=== PATIENT | female | born 1950 | race Caucasian/White ===

== ENCOUNTER 2018-02-19 05:58 | Day surgery (SDC) | payer MEDICARE ==
--- NOTE | 2018-02-12 15:20 | RAD REPORT ---
EXAM DESCRIPTION: RAD - Chest Single View - 02/12/2018 3:09 pm CLINICAL HISTORY: preop Chest pain. COMPARISON: Chest Single View dated 04/19/2017 FINDINGS: Portable technique limits examination quality. The lungs are grossly clear. The heart is normal in size. No displaced fractures. IMPRESSION: No acute intrathoracic process suspected.
--- NOTE | 2018-02-12 15:37 | EKG ---
Test Date: 2018-02-12 Test Time: 14:59:57 Cupola Tender: RICH MEASUREMENT RESULTS: Intervals: Rate: 62 IN: 126 QRSD: 76 QT: 400 QTc: 406 Hooper: P: 74 IN: 126 QRS: 54 T: 58 INTERPRETIVE STATEMENTS: Normal sinus rhythm Normal ECG Compared to ECG 04/19/2017 16:53:22 Sinus bradycardia no longer present Electronically Signed On 02-12-18 15:36:44 CDT by Guanako Mitchell
[2018-02-12 16:32] LABS: Absolute Lymphocytes (CBC) 2.5 K/uL (0.7-4.9); Absolute Monocytes 0.6 K/uL (0.1-1.3); Absolute Neutrophil 5.8 K/uL (1.8-8.0); Basophils % 0.7 % (0-1.3); Eosinophils % 2.5 % (0-4.4); Hematocrit 38.9 % (36.0-45.0); Lymphocytes % 27.3 % (15.3-44.8); MCH 30.9 pg (27.0-35.0); MCV 94.5 fL (80-100); MPV 10.8 fL (7.6-11.3); Monocytes % 6.9 % (3.3-12.3); RBC Red Blood Cell Count 4.12 M/uL (3.86-4.86)
[2018-02-12 16:36] LABS: Protime INR 0.94
[2018-02-19] MEDS ORDERED: CEFAZOLIN/SWI 2gm 2 GM/20 ML SYR IV SCH (06:00)
[2018-02-19] MEDS ORDERED: Ringers Lactate 1,000 ML IV ONE ×2 (06:27→08:35)
[2018-02-19] MEDS ORDERED: ROPLVACAINE HCL 40 ML ONE (06:49)
[2018-02-19] MEDS ORDERED: FENTANYL CITR 250 MCG/5 ML ONE (06:50)
[2018-02-19] MEDS ORDERED: MIDAZOLAM HCL 2 MG/2 ML INJ ONE (06:50)
[2018-02-19] MEDS ORDERED: DEXAMETHASONE 4 MG/ML VIAL ONE (06:50)
[2018-02-19] MEDS ORDERED: EPINEPHRINE/PF 1 MG/ML AMP ONE (06:51)
[2018-02-19] MEDS ORDERED: ROCURONIUM 50 MG/5 ML VIAL IV ONE (07:18)
[2018-02-19] MEDS ORDERED: PROPOFOL 200 MG/20 ML VIAL IV ONE (07:18)
[2018-02-19] MEDS ORDERED: LIDOCAINE 1% MPF 5 ML VIAL ONE (07:18)
[2018-02-19] MEDS ORDERED: EPHEDRINE SULF 50 MG/10 ML SYR ONE ×2 (08:09→08:35)
[2018-02-19] MEDS ORDERED: Phenylephrine HCl 10 MG/ML 1 ML VIAL ONE (08:43)
[2018-02-19] MEDS ORDERED: NS 0.9% VIAL 20 ML ONE (08:44)
[2018-02-19] MEDS ORDERED: ONDANSETRON HCL 40 MG/20 ML VIAL ONE (09:23)
[2018-02-19] MEDS ORDERED: GLYCOPYRROLATE 0.2 MG/ML SYR ONE (09:23)
--- NOTE | 2018-02-19 09:33 | P.BOP ---
Preoperative diagnosis: left rotator cuff tear, biceps tendinitis, impingement syndrome Postoperative diagnosis: left rotator cuff tear, impingement syndrome, SLAP tear Primary procedure: left shoulder arthroscopic rotator cuff repair Secondary procedure: left shoulder arthroscopic biceps tenotomy w/ SLAP debridement Other procedure(s): left shoulder arthroscopic subacromial decompression Estimated blood loss: <10 cc Specimen: none Findings: see dictation Anesthesia: General Complications: None Implants: 1- 5.5 mm Arthrex corkscrew, 1- 4.75 mm Swivelock Fluids & blood products: per anesthesia Transferred to: Recovery Room Condition: Good
[2018-02-19] MEDS ORDERED: NEOSTIGMINE 1 MG/ML -5 ML SYRINGE ONE (09:48)
--- NOTE | 2018-02-19 10:49 | RAD REPORT ---
EXAM DESCRIPTION: RAD - Shoulder 1 View - 02/19/2018 10:21 am FINDINGS: Single portable left shoulder film obtained following rotator cuff repair surgery. No foreign body. No fracture or acute bone finding. Air in the lateral soft tissues is normal for rec ent surgery. No suspicious or unexpected finding.
[2018-02-19] MEDS ORDERED: HYDROCODONE/APAP 7.5/325 MG TAB ONE (10:57)
--- NOTE | 2018-02-19 20:58 | OP ---
Date of Procedure: 02/19/2018 Surgeon: Enzo Kelley MD Preoperative Diagnoses: 1.Left shoulder rotator cuff tear. 2.Left shoulder bicipital tenosynovitis. 3.Left shoulder impingement syndrome. Postoperative Diagnoses: 1.Left shoulder rotator cuff tear. 2.Left shoulder superior labrum anterior and posterior tear. 3.Left shoulder impingement syndrome. Procedures Performed: 1.Left shoulder arthroscopic rotator cuff repair. 2.Left shoulder arthroscopic biceps tenotomy with superior labrum anterior and posterior tear debrid ement. 3.Left shoulder subacromial decompression. Anesthesia: General endotracheal. Fluids: Per Anesthesia record. Ebl: Less than 10 cc. Implants: 1.One 5.5 mm Arthrex corkscrew. 2.One 4.75 mm Arthrex SwiveLock. Indication For Procedure: Emilia is a 67-year-old female who presented to my clinic with signs and s ymptoms and MRI findings consistent with a left shoulder rotator cuff tear. I discussed with the pat ient at length risks and benefits associated with operative and nonoperative treatments. She express ed understanding and elected to proceed with operative treatment. Procedure In Detail: After informed consent was obtained, the patient was identified in the preopera tive holding area. Left upper extremity was marked. The patient then underwent a left interscalene block performed by Anesthesia for postoperative pain control. She was then taken back to the operati ng room, transferred to the operative table in supine fashion, placed under general endotracheal anes thesia. She was then placed in the beach chair position with her extremities well-padded. The left upper extremity was then examined. The patient had full range of motion of her left shoulder with no instability noted. The left upper extremity was then prepped and draped in usual sterile fashion. A time-out was initiated and the correct patient and procedure were confirmed and identified. The pa connor did receive her preoperative prophylactic antibiotics. Beneath the posterior portal position a spinal needle was introduced into the left glenohumeral joint and shoulder was injected with 30 cc o f normal saline to the tendon and capsule. A posterior portal was created and the arthroscope was br ought to the posterior portal position. Diagnostic arthroscopy was performed. The patient was noted to have an intact subscapularis, and stable to probe. An anterior portal was created and cannula wa s placed. There was noted to be a type 2 SLAP tear and biceps tenotomy was performed with meniscal b iters. The frayed superior labrum was then debrided using an arthroscopic shaver. The anterior and posterior labrum were found to be stable to probe. There was some mild chondromalacia noted on the g lenoid surface. No significant chondromalacia in the humeral head. No loose bodies were noted in th e axillary pouch. The arthroscope was brought into the supraspinatus footprint near the tubular surf aubree and there was noted to be a full-thickness tear in the anterior aspect of the supraspinatus just posterior to the biceps. An arthroscopic shaver was then used to be to debride the undersurface of t he rotator cuff tear as well as footprint on the greater tuberosity. A lateral portal was then creat ed of an outside-in position. An arthroscopic shaver was then used to debride the footprint of supra spinatus and the side of the tear, debrided to bleeding bony bed. The arthroscope was then brought i nto the subacromial space and a subacromial bursectomy was performed. The patient was noted to have fraying of the coracoacromial ligament. Undersurface of the acromion was then debrided of soft tissu e using a radiofrequency ablator. A small stab incision was made just lateral to the acromion and wi th placement of the anchor. A punch was then placed just lateral to the articular surface and a 5.5 mm corkscrew was placed through, which was double loaded. Four cinch sutures were then passed throug h the supraspinatus tear using a FastPass scorpion suture passer in a horizontal mattress fashion for medial row fixation. They were then tied and then brought laterally to a single SwiveLock, was plac ed in the lateral aspect of the greater tuberosity, overall good reduction of the supraspinatus tear onto its footprint on the greater tuberosity. The remaining sutures were then cut at the level later al row anchor. Next, using an arthroscopic arnulfo, a subacromial decompression was performed by perfor kwame an acromioplasty using the arthroscopic arnulfo and inferior protruding osteophytes were debrided u sing the arnulfo. Instruments were then removed. The portals were then irrigated with normal saline an d the subcutaneous tissues were approximated using a 2-0 Vicryl and portals were approximated using a 3-0 Monocryl. Sterile dressings were applied. The patient was placed in a postoperative shoulder i mmobilizer, awakened, and transferred to PACU in stable condition. Postoperative Plan: She will be nonweightbearing, and she will remain in her shoulder immobilizer fo r 6 weeks. She will begin physical therapy for medium rotator cuff repair protocol at 4 weeks postop erative. She will follow up in clinic next week for wound check. LESTER/VINI Voice ID: [id number] Report ID: [id number]
== END 2018-02-19 11:50 | disposition home or self-care (01) ==
LOC: OR 05:58
PROVIDERS: ATTEND Orthopaedic Surgery Sports Medicine
PROC: 0LS24ZZ Reposition Left Shoulder Tendon, Percutaneous Endoscopic Approach (ICD-10-PCS; 2018-02-19)
PROC: 0RNK4ZZ Release Left Shoulder Joint, Percutaneous Endoscopic Approach (ICD-10-PCS; 2018-02-19)
PROC: 0RBK4ZZ Excision of Left Shoulder Joint, Percutaneous Endoscopic Approach (ICD-10-PCS; 2018-02-19)
PROC: 0LQ24ZZ Repair Left Shoulder Tendon, Percutaneous Endoscopic Approach (ICD-10-PCS; principal; 2018-02-19 07:30)
DX: M75.122 Complete rotator cuff tear or rupture of left shoulder, not specified as traumatic (principal); M75.22 Bicipital tendinitis, left shoulder; M75.42 Impingement syndrome of left shoulder; M25.512 Pain in left shoulder
CPT/HCPCS: 29823; 29826; 29827; 29828; 36415; 71046; 73020; 85025; 85610; 85730; 93005; J0171; J0690; J2250; J2370; J2405; J2710; J2795; 71045

== ENCOUNTER 2018-05-15 19:36 | Emergency (ER) | payer MEDICARE ==
--- NOTE | 2018-05-15 20:42 | RAD REPORT ---
EXAM DESCRIPTION: RAD - Chest Pa And Lat (2 Views) - 05/15/2018 8:33 pm CLINICAL HISTORY: COUGH Chest pain. COMPARISON: Chest Pa And Lat (2 Views) dated 02/12/2018; Chest Single View dated 04/19/2017 FINDINGS: The lungs are clear. The heart is normal in size. No displaced fractures. IMPRESSION: No acute or concerning finding suspected.
[2018-05-15] MEDS ORDERED: IPRATROPIUM BROM 0.5MG/2.5ML ONE (22:01)
[2018-05-15] MEDS ORDERED: predniSONE 20 MG TAB ONE (22:02)
[2018-05-15] MEDS ORDERED: LEVALBUTEROL 1.25 MG/3 ML NEB ONE (22:02)
--- NOTE | 2018-05-15 22:37 | EDPHYS ---
Physician Documentation [facility] Name: Emilia Pinzon Age: 68 yrs Sex: Female : 1950 Arrival Date: 05/15/2018 Time: 19:46 Bed 28 Private MD: ED Physician Yakov Luis HPI: 05/15 22:34 This 68 yrs old Female presents to ER via Ambulatory with complaints of kb Shortness Of Breath, Chest Wall Pain. 22:34 The patient or guardian reports cough, that is intermittent, described as moderate, kb with no sputum, difficulty breathing. Onset: The symptoms/episode began/occurred 1 week(s) ago. Severity of symptoms: At their worst the symptoms were mild, moderate, in the emergency department the symptoms are unchanged. Modifying factors: The symptoms are alleviated by nothing, the symptoms are aggravated by nothing. Associated signs and symptoms: The patient has no apparent associated signs or symptoms. The patient has not experienced similar symptoms in the past. The patient has not recently seen a physician. Historical: - Allergies: 19:50 Sulfa (Sulfonamide Antibiotics); aj - Home Meds: 19:50 Celexa 40 mg Oral tab 1 tab once daily [Active]; amlodipine oral once daily [Active]; aj atenolol 100 mg Oral tab 1 tab once daily [Active]; - PMHx: 19:50 Anxiety; Hypertension; aj - PSHx: 19:50 Hysterectomy; Cholecystectomy; shoulder SX; aj - Immunization history:: Adult Immunizations up to date. - Social history:: Smoking status: Patient/guardian denies using tobacco, the patient reports quitting approximately 8 years ago. - Ebola Screening: : Patient negative for fever greater than or equal to 101.5 degrees Fahrenheit, and additional compatible Ebola Virus Disease symptoms Patient denies exposure to infectious person Patient denies travel to an Ebola-affected area in the 21 days before illness onset No symptoms or risks identified at this time. ROS: 22:33 Constitutional: Negative for fever, chills, and weight loss, Cardiovascular: Negative kb for chest pain, palpitations, and edema, Abdomen/GI: Negative for abdominal pain, nausea, vomiting, diarrhea, and constipation, Back: Negative for injury and pain, : Negative for injury, bleeding, discharge, and swelling, MS/Extremity: Negative for injury and deformity, Skin: Negative for injury, rash, and discoloration, Neuro: Negative for headache, weakness, numbness, tingling, and seizure. 22:33 Respiratory: Positive for cough, with no reported sputum, shortness of breath, wheezing, Negative for dyspnea on exertion, hemoptysis, orthopnea, pleurisy. Exam: 22:33 Constitutional: This is a well developed, well nourished patient who is awake, alert, kb and in no acute distress. Head/Face: Normocephalic, atraumatic. Neck: Trachea midline, no thyromegaly or masses palpated, and no cervical lymphadenopathy. Supple, full range of motion without nuchal rigidity, or vertebral point tenderness. No Meningismus. Chest/axilla: Normal chest wall appearance and motion. Nontender with no deformity. No lesions are appreciated. Cardiovascular: Regular rate and rhythm with a normal S1 and S2. No gallops, murmurs, or rubs. Normal PMI, no JVD. No pulse deficits. Abdomen/GI: Soft, non-tender, with normal bowel sounds. No distension or tympany. No guarding or rebound. No evidence of tenderness throughout. Skin: Warm, dry with normal turgor. Normal color with no rashes, no lesions, and no evidence of cellulitis. MS/ Extremity: Pulses equal, no cyanosis. Neurovascular intact. Full, normal range of motion. Neuro: Awake and alert, GCS 15, oriented to person, place, time, and situation. Cranial nerves II-XII grossly intact. Motor strength 5/5 in all extremities. Sensory grossly intact. Cerebellar exam normal. Normal gait. 22:33 Respiratory: the patient does not display signs of respiratory distress, Respirations: normal, Breath sounds: wheezing: expiratory that is moderate, is heard diffusely. Vital Signs: 19:50 BP 138 / 78; Pulse 90; Resp 20; Temp 97.9; Pulse Ox 94% on R/A; Weight 79.38 kg; Height aj 5 ft. 7 in. (170.18 cm); 22:39 BP 137 / 67; Pulse 73; Resp 17; Pulse Ox 100% on R/A; rv 19:50 Body Mass Index 27.41 (79.38 kg, 170.18 cm) aj MDM: 21:41 Patient medically screened. kb 22:33 Data reviewed: vital signs, nurses notes. Data interpreted: Pulse oximetry: on room air kb is 94 %. Interpretation: acceptable. 22:34 Counseling: I had a detailed discussion with the patient and/or guardian regarding: the kb historical points, exam findings, and any diagnostic results supporting the discharge/admit diagnosis, lab results, the need for outpatient follow up, a family practitioner, to return to the emergency department if symptoms worsen or persist or if there are any questions or concerns that arise at home. 05/15 21:47 Order name: Flu; Complete Time: 22:24 kb 05/15 19:52 Order name: Chest Pa And Lat (2 Views) XRAY; Complete Time: 21:41 aj Administered Medications: 22:05 Drug: Xopenex (3) 1.25 mg Route: Inhalation; rv 22:47 Follow up: Response: Wheezing diminished rv 22:05 Drug: AtroVENT Aerosol 0.5 mg Route: Inhalation; rv 22:47 Follow up: Response: No adverse reaction rv 22:05 Drug: predniSONE 40 mg Route: PO; rv 22:47 Follow up: Response: No adverse reaction rv Disposition: 05/15/18 22:36 Discharged to Home. Impression: Bronchitis, not specified as acute or chronic. - Condition is Stable. - Discharge Instructions: Acute Bronchitis, [id number]. - Prescriptions for Prednisone 20 mg Oral Tablet - take 1 tablet by ORAL route once daily for 5 days; 5 tablet. Albuterol Sulfate 90 mcg/actuation - inhale 1-2 puff by INHALATION route every 4-6 hours; 1 Inhaler. - Medication Reconciliation Form, Thank You Letter, Antibiotic Education, Prescription Opioid Use form. - Follow up: Emergency Department; When: As needed; Reason: Worsening of condition. Follow up: Private Physician; When: 2 - 3 days; Reason: Recheck today's complaints, Continuance of care, Re-evaluation by your physician. Addendum: 05/19/2018 06:50 Co-signature as Attending Physician, Yakov Luis MD I agree with the assessment and c saavedra plan of care. Signatures: Dispatcher [employer] Maria Elena Santiago, ARETHA ZAMARRIPA-Lani Pereira RN Yakov Jones MD MD cha Vicente, Ronaldo RN RN rv Corrections: (The following items were deleted from the chart) 05/15 22:48 22:36 05/15/2018 22:36 Discharged to Home. Impression: Bronchitis, not specified as rv acute or chronic. Condition is Stable. Forms are Medication Reconciliation Form, Thank You Letter, Antibiotic Education, Prescription Opioid Use. Follow up: Emergency Department; When: As needed; Reason: Worsening of condition. Follow up: Private Physician; When: 2 - 3 days; Reason: Recheck today's complaints, Continuance of care, Re-evaluation by your physician. kb
--- NOTE | 2018-05-15 22:37 | ER ---
Nurse's Notes [facility] Name: Emilia Pinzon Age: 68 yrs Sex: Female : 1950 Arrival Date: 05/15/2018 Time: 19:46 Bed 28 Private MD: Diagnosis: Bronchitis, not specified as acute or chronic Presentation: 05/15 19:49 Presenting complaint: Patient states: SOB and productive cough for 1 week. Transition aj of care: patient was not received from another setting of care. Onset of symptoms was May 08, 2018. Risk Assessment: Do you want to hurt yourself or someone else? Patient reports no desire to harm self or others. Initial Sepsis Screen: Does the patient meet any 2 criteria? No. Patient's initial sepsis screen is negative. Does the patient have a suspected source of infection? No. Patient's initial sepsis screen is negative. Care prior to arrival: None. 19:49 Method Of Arrival: Ambulatory aj 19:49 Acuity: LAUREN 3 aj Triage Assessment: 19:50 General: Appears in no apparent distress. comfortable, Behavior is calm, cooperative, aj appropriate for age. Pain: Denies pain. Neuro: Level of Consciousness is awake, alert, obeys commands, Oriented to person, place, time, situation, Appropriate for age. Respiratory: Reports shortness of breath at rest Airway is patent Respiratory effort is even, unlabored, Respiratory pattern is regular, symmetrical, Onset: The symptoms/episode began/occurred gradually, the patient has mild shortness of breath. Respiratory: Reports cough that is productive. Derm: Skin is intact, is healthy with good turgor, Skin is pink, warm \T\ dry. normal. Historical: - Allergies: 19:50 Sulfa (Sulfonamide Antibiotics); aj - Home Meds: 19:50 Celexa 40 mg Oral tab 1 tab once daily [Active]; amlodipine oral once daily [Active]; aj atenolol 100 mg Oral tab 1 tab once daily [Active]; - PMHx: 19:50 Anxiety; Hypertension; aj - PSHx: 19:50 Hysterectomy; Cholecystectomy; shoulder SX; aj - Immunization history:: Adult Immunizations up to date. - Social history:: Smoking status: Patient/guardian denies using tobacco, the patient reports quitting approximately 8 years ago. - Ebola Screening: : Patient negative for fever greater than or equal to 101.5 degrees Fahrenheit, and additional compatible Ebola Virus Disease symptoms Patient denies exposure to infectious person Patient denies travel to an Ebola-affected area in the 21 days before illness onset No symptoms or risks identified at this time. Screenin:07 Abuse screen: Denies threats or abuse. Denies injuries from another. Nutritional rv screening: No deficits noted. Tuberculosis screening: No symptoms or risk factors identified. Fall Risk None identified. Assessment: 22:06 General: Appears in no apparent distress. comfortable, Behavior is calm, cooperative, rv Smells of. Pain: Denies pain. Neuro: Level of Consciousness is awake, alert, obeys commands, Oriented to person, place, time, situation. Cardiovascular: Rhythm is regular. Respiratory: Airway is patent Breath sounds with wheezes bilaterally. GI: No signs and/or symptoms were reported involving the gastrointestinal system. : No signs and/or symptoms were reported regarding the genitourinary system. EENT: No signs and/or symptoms were reported regarding the EENT system. Derm: Skin is intact. Vital Signs: 19:50 BP 138 / 78; Pulse 90; Resp 20; Temp 97.9; Pulse Ox 94% on R/A; Weight 79.38 kg; Height aj 5 ft. 7 in. (170.18 cm); 22:39 BP 137 / 67; Pulse 73; Resp 17; Pulse Ox 100% on R/A; rv 19:50 Body Mass Index 27.41 (79.38 kg, 170.18 cm) aj ED Course: 19:46 Patient arrived in ED. ds1 19:50 Triage completed. aj 19:50 Arm band placed on left wrist. Patient placed in waiting room, Patient notified of wait aj time. X-ray ordered. 20:33 Chest Pa And Lat (2 Views) XRAY In Process Unspecified. EDMS 21:41 Maria Elena Reinoso FNP-C is PHCP. kb 21:41 Yakov Luis MD is Attending Physician. kb 22:07 Patient has correct armband on for positive identification. Bed in low position. Call rv light in reach. Side rails up X 1. Pulse ox on. NIBP on. 22:39 No provider procedures requiring assistance completed. Patient did not have IV access rv during this emergency room visit. Administered Medications: 22:05 Drug: Xopenex (3) 1.25 mg Route: Inhalation; rv 22:47 Follow up: Response: Wheezing diminished rv 22:05 Drug: AtroVENT Aerosol 0.5 mg Route: Inhalation; rv 22:47 Follow up: Response: No adverse reaction rv 22:05 Drug: predniSONE 40 mg Route: PO; rv 22:47 Follow up: Response: No adverse reaction rv Outcome: 22:36 Discharge ordered by . kb 22:40 Discharged to home ambulatory. rv 22:40 Condition: improved 22:40 Discharge instructions given to patient, Instructed on discharge instructions, follow up and referral plans. medication usage, Demonstrated understanding of instructions, follow-up care, medications, Prescriptions given X 2. 22:48 Patient left the ED. rv Signatures: Dispatcher [employer] EDMaria Elena Aleman, CASHIER MANAGER-C DALLIN-Lani Pereira, RN Nilda Alonso ds1 Steven Álvarez RN RN rv
== END 2018-05-15 22:48 | disposition home or self-care (01) ==
LOC: ER 19:36
DX: J40 Bronchitis, not specified as acute or chronic (principal); I10 Essential (primary) hypertension; F41.9 Anxiety disorder, unspecified; Z88.2 Allergy status to sulfonamides
CPT/HCPCS: 71046; 87804; 99284; J7512

== ENCOUNTER 2018-11-03 16:08 | Emergency (ER) | payer MEDICARE ==
[2018-11-03] MEDS ORDERED: TETANUS & DIPHTHERIA TOX,ADULT 0.5 ML VIAL ONE (18:21)
--- NOTE | 2018-11-03 18:35 | RAD REPORT ---
EXAM DESCRIPTION: RAD - C Spine W Obliques - 11/03/2018 6:29 pm CLINICAL HISTORY: Neck pain, shoulder pain COMPARISON: None. TECHNIQUE: AP, lateral, odontoid and oblique views of the cervical spine were obtained. FINDINGS: Cervical bodies are normal in height. No compression fracture. No lytic, sclerotic or expa nsile destructive process. There is a very slight retrolisthesis of C4 on C5 and very slight anterior subluxation of C6 on C7. Both of these are due to facet joint degenerative change. Oblique views stephen w no bony foraminal encroachment. No facet joint alignment abnormality. C3-4 and C4-5 show narrowing of the posterior margin of the disc. There is no prevertebral soft tissue thickening or other significant soft tissue finding. IMPRESSION: Cervical spine degenerative changes are present. No fracture or acute cervical spine fin ding. No bony foraminal encroachment. Foramina are widely patent. Concerns for disc herniation, central canal abnormality or occult bone process can be addressed with MR imaging.
--- NOTE | 2018-11-03 18:39 | RAD REPORT ---
EXAM DESCRIPTION: RAD - Shoulder Left 2 View - 11/03/2018 6:25 pm CLINICAL HISTORY: Left shoulder pain COMPARISON: None. TECHNIQUE: Internal and external rotation views of the left shoulder were obtained. FINDINGS: There is no fracture or dislocation. AC joint is normal in appearance. Very minimal degene rative changes are present along the superolateral humeral head. No scapula abnormality. Ribs and par enchyma of the upper chest show no suspicious findings. IMPRESSION: Negative two-view left shoulder examination for acute or significant finding.
--- NOTE | 2018-11-03 18:46 | ER ---
Nurse's Notes [facility] Name: Emilia Pinzon Age: 68 yrs Sex: Female : 1950 Arrival Date: 11/03/2018 Time: 16:11 Bed 27 Private MD: Michael Henry E Diagnosis: Sprain of ligaments of cervical spine;Other sprain of left shoulder joint Presentation: 11/03 16:22 Transition of care: patient was not received from another setting of care. Onset of ss symptoms was November 01, 2018. Risk Assessment: Do you want to hurt yourself or someone else? Patient reports no desire to harm self or others. Initial Sepsis Screen: Does the patient meet any 2 criteria? No. Patient's initial sepsis screen is negative. Does the patient have a suspected source of infection? No. Patient's initial sepsis screen is negative. Care prior to arrival: None. 16:22 Method Of Arrival: Ambulatory ss 16:22 Acuity: LAUREN 4 ss 16:24 Presenting complaint: Patient states: low back, L shoulder and L side of neck pain ss after falling over at [employer] 2 days ago. Historical: - Allergies: 16:23 Sulfa (Sulfonamide Antibiotics); ss - PMHx: 16:23 Anxiety; Hypertension; ss - PSHx: 16:23 Hysterectomy; Cholecystectomy; shoulder SX; ss - Immunization history:: Adult Immunizations up to date. - Social history:: Smoking status: Patient/guardian denies using tobacco. - Ebola Screening: : Patient denies exposure to infectious person Patient denies travel to an Ebola-affected area in the 21 days before illness onset. Screenin:47 Abuse screen: Denies threats or abuse. Denies injuries from another. Nutritional mg2 screening: No deficits noted. Tuberculosis screening: No symptoms or risk factors identified. Fall Risk None identified. Assessment: 17:43 General: Appears in no apparent distress. comfortable, Behavior is calm, cooperative. mg2 Pain: Pain: Complains of pain in nape and left arm Pain does not radiate. Pain currently is 5 out of 10 on a pain scale. Quality of pain is described as aching, Pain began suddenly, 2-3 days ago. Is intermittent. 17:44 Neuro: Level of Consciousness is awake, alert, obeys commands, Oriented to person, mg2 place, time, situation. Cardiovascular: Capillary refill < 3 seconds Patient's skin is warm and dry. Respiratory: Airway is patent Respiratory effort is even, unlabored, Respiratory pattern is regular, symmetrical. GI: No signs and/or symptoms were reported involving the gastrointestinal system. : No signs and/or symptoms were reported regarding the genitourinary system. EENT: No signs and/or symptoms were reported regarding the EENT system. Derm: Skin is intact, is healthy with good turgor, Skin is pink, warm \T\ dry. normal. Musculoskeletal: Circulation, motion, and sensation intact. Capillary refill < 3 seconds, Reports pain in neck and left shoulder and left arm. Injury Description: Bruise sustained to left arm skin tears. Vital Signs: 16:23 BP 120 / 73; Pulse 70; Resp 18; Temp 98.9(TE); Pulse Ox 94% ; Weight 77.11 kg; Height 5 ss ft. 7 in. (170.18 cm); Pain 3/10; 17:47 BP 122 / 72; Pulse 56; Resp 18; Pulse Ox 96% on R/A; mg2 16:23 Body Mass Index 26.63 (77.11 kg, 170.18 cm) ED Course: 16:11 Patient arrived in ED. mr 16:11 Michael Henry MD is Private Physician. mr 16:22 Triage completed. ss 16:23 Arm band placed on right wrist. ss 17:07 Ramses Fischer MD is Attending Physician. gs 17:26 Timo Garza, AMISH is Primary Nurse. mg2 17:47 No provider procedures requiring assistance completed. Patient did not have IV access mg2 during this emergency room visit. 18:24 C Spine W Obliques XRAY In Process Unspecified. EDMS 18:24 Shoulder Left (2 View) XRAY In Process Unspecified. EDMS 18:45 Tyrell Fry MD is Referral Physician. gs 19:11 Wound care: to abrasion, located on left arm was cleaned with Betadine, irrigated with mg2 normal saline, dressed with Neosporin, Kerlix. 19:12 Patient has correct armband on for positive identification. mg2 19:13 Sling applied to left arm. 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 Exp: mg2 08/28/2020. Lot #: [id number]. } Route: IM; Site: right deltoid; Outcome: 18:46 Discharge ordered by . bailey 19:12 Discharged to home ambulatory. mg2 19:12 Condition: stable 19:12 Discharge instructions given to patient, Instructed on discharge instructions, follow up and referral plans. wound care, Demonstrated understanding of instructions, follow-up care, wound care. 19:13 Patient left the ED. mg2 Signatures: Dispatcher [employer] KEYLA EganKelsea gilmore Shelby, RN RN Ramses Fischer MD MD gs Gardose, Michele, RN RN mg2 Corrections: (The following items were deleted from the chart) 17:47 17:43 Pain: mg2 mg2
--- NOTE | 2018-11-03 18:46 | EDPHYS ---
Physician Documentation [facility] Name: Emilia Pinzon Age: 68 yrs Sex: Female : 1950 Arrival Date: 11/03/2018 Time: 16:11 Bed 27 Private MD: Michael Henry E ED Physician Ramses Fischer HPI: 11/03 19:08 This 68 yrs old Female presents to ER via Ambulatory with complaints of Arm gs Injury. 19:09 Details of fall: The patient fell from an upright position. Onset: The symptoms/episode gs began/occurred yesterday. Associated injuries: The patient sustained neck injury, pain with movement, anterior aspect of left shoulder and dorsal aspect of left forearm. Severity of symptoms: At their worst the symptoms were moderate, in the emergency department the symptoms are unchanged. The patient has experienced a previous episode. The patient has not recently seen a physician. Historical: - Allergies: 16:23 Sulfa (Sulfonamide Antibiotics); ss - PMHx: 16:23 Anxiety; Hypertension; ss - PSHx: 16:23 Hysterectomy; Cholecystectomy; shoulder SX; ss - Immunization history:: Adult Immunizations up to date. - Social history:: Smoking status: Patient/guardian denies using tobacco. - Ebola Screening: : Patient denies exposure to infectious person Patient denies travel to an Ebola-affected area in the 21 days before illness onset. ROS: 19:09 All other systems are negative. gs Exam: 19:09 Head/Face: Normocephalic, atraumatic. Eyes: Pupils equal round and reactive to light, gs extra-ocular motions intact. Lids and lashes normal. Conjunctiva and sclera are non-icteric and not injected. Cornea within normal limits. Periorbital areas with no swelling, redness, or edema. ENT: Nares patent. No nasal discharge, no septal abnormalities noted. Tympanic membranes are normal and external auditory canals are clear. Oropharynx with no redness, swelling, or masses, exudates, or evidence of obstruction, uvula midline. Mucous membranes moist. Chest/axilla: Normal chest wall appearance and motion. Nontender with no deformity. No lesions are appreciated. Cardiovascular: Regular rate and rhythm with a normal S1 and S2. No gallops, murmurs, or rubs. Normal PMI, no JVD. No pulse deficits. Respiratory: Lungs have equal breath sounds bilaterally, clear to auscultation and percussion. No rales, rhonchi or wheezes noted. No increased work of breathing, no retractions or nasal flaring. Abdomen/GI: Soft, non-tender, with normal bowel sounds. No distension or tympany. No guarding or rebound. No evidence of tenderness throughout. Back: No spinal tenderness. No costovertebral tenderness. Full range of motion. 19:09 Constitutional: The patient appears alert, awake. 19:09 Neck: C-spine: vertebral tenderness, that is mild, appreciated at C5. 19:09 Musculoskeletal/extremity: Extremities: noted in the dorsal aspect of left forearm: laceration, small superficial, Circulation is intact in all extremities. Joints: the left shoulder displays painful range of motion. Vital Signs: 16:23 BP 120 / 73; Pulse 70; Resp 18; Temp 98.9(TE); Pulse Ox 94% ; Weight 77.11 kg; Height 5 ss ft. 7 in. (170.18 cm); Pain 3/10; 17:47 BP 122 / 72; Pulse 56; Resp 18; Pulse Ox 96% on R/A; mg2 16:23 Body Mass Index 26.63 (77.11 kg, 170.18 cm) ss MDM: 18:05 Patient medically screened. gs 19:09 Differential diagnosis: contusion, fracture, sprain. Data reviewed: vital signs, nurses gs notes. Counseling: I had a detailed discussion with the patient and/or guardian regarding: the historical points, exam findings, and any diagnostic results supporting the discharge/admit diagnosis, radiology results, the need for outpatient follow up. Response to treatment: the patient's symptoms have mildly improved after treatment, and as a result, I will discharge patient. 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 Exp: mg2 08/28/2020. Lot #: [id number]. } Route: IM; Site: right deltoid; Disposition: 11/03/18 18:46 Discharged to Home. Impression: Sprain of ligaments of cervical spine, Other sprain of left shoulder joint. - Condition is Stable. - Discharge Instructions: Cervical Sprain, Shoulder Sprain. - Medication Reconciliation Form, Thank You Letter, Antibiotic Education, Prescription Opioid Use form. - Follow up: Tyrell Fry MD; When: 2 - 3 days; Reason: Re-evaluation by your physician. Signatures: Dispatcher [employer] EDCT Stephania Nicholson RN RN Ramses Fischer MD MD Timo Garza RN RN mg2 Corrections: (The following items were deleted from the chart) 19:13 18:46 11/03/2018 18:46 Discharged to Home. Impression: Sprain of ligaments of cervical mg2 spine; Other sprain of left shoulder joint. Condition is Stable. Forms are Medication Reconciliation Form, Thank You Letter, Antibiotic Education, Prescription Opioid Use. Follow up: Tyrell Fry; When: 2 - 3 days; Reason: Re-evaluation by your physician. gs
== END 2018-11-03 19:13 | disposition home or self-care (01) ==
LOC: ER 16:08
DX: S13.4XXA Sprain of ligaments of cervical spine, initial encounter (principal); S43.402A Unspecified sprain of left shoulder joint, initial encounter; W18.30XA Fall on same level, unspecified, initial encounter; Z23 Encounter for immunization; F41.9 Anxiety disorder, unspecified; I10 Essential (primary) hypertension
CPT/HCPCS: 72050; 90471; 90714; 99284

== ENCOUNTER 2018-12-02 10:47 | Emergency (ER) | payer MEDICARE ==
[2018-12-02] MEDS ORDERED: ALBUTEROL 2.5 MG/3 ML NEB SOL ONE (11:54)
[2018-12-02] MEDS ORDERED: IPRATROPIUM BROM 0.5MG/2.5ML ONE (11:54)
--- NOTE | 2018-12-02 13:15 | ER ---
Nurse's Notes [facility] Name: Emilia Pinzon Age: 68 yrs Sex: Female : 1950 Arrival Date: 12/02/2018 Time: 10:50 Bed 4 Private MD: Michael Henry E Diagnosis: Intercostal pain;Chronic obstructive pulmonary disease, unspecified Presentation: 12/02 11:02 Presenting complaint:. Transition of care: patient was not received from another [facility] setting of care. Onset of symptoms was December 02, 2018. Risk Assessment: Do you want to hurt yourself or someone else? Patient reports no desire to harm self or others. Initial Sepsis Screen: Does the patient meet any 2 criteria? No. Patient's initial sepsis screen is negative. Does the patient have a suspected source of infection? No. Patient's initial sepsis screen is negative. Care prior to arrival: None. 11:02 Method Of Arrival: Ambulatory tw2 11:02 Acuity: LAUREN 2 tw2 11:03 Presenting complaint: Patient states: 8 years ago i quit smoking, last 3 or 4 months no tw2 energy, cant breathe, went Saturday to and he told me i had emphysema, he gave me prednisone 10 mg twice a day and proair and symbicort inhalers, i guess because i am short of breath my blood pressure went up, he suggested i take xanax, it works for my anxiety,i am short of breath and wheezing, i might have broken a RIGHT rib because i am coughing so much. Triage Assessment: 11:05 General: Appears in no apparent distress. uncomfortable, Behavior is cooperative, tw2 appropriate for age. Pain: Complains of pain in chest. Respiratory: Reports shortness of breath at rest on exertion cough that is non-productive, Onset: The symptoms/episode began/occurred a week ago, the patient has moderate shortness of breath. Historical: - Allergies: 11:07 Sulfa (Sulfonamide Antibiotics); tw2 - Home Meds: 11:07 amlodipine oral once daily [Active]; atenolol 100 mg Oral tab 1 tab once daily tw2 [Active]; Celexa 40 mg Oral tab 1 tab once daily [Active]; estradiol 2 mg Oral tab 1 tab once daily [Active]; Xanax 1 mg Oral tab 1 tab 3 times per day [Active]; - PMHx: 11:07 Anxiety; Hypertension; tw2 - PSHx: 11:07 Hysterectomy; Cholecystectomy; shoulder SX; tw2 - Immunization history:: Adult Immunizations. - Social history:: Smoking status: Patient/guardian denies using tobacco. - Ebola Screening: : Patient denies travel to an Ebola-affected area in the 21 days before illness onset. Screenin:50 Abuse screen: Denies threats or abuse. Denies injuries from another. Nutritional sg screening: No deficits noted. Tuberculosis screening: No symptoms or risk factors identified. Never had TB. Fall Risk None identified. Assessment: 11:50 General: Appears in no apparent distress. well groomed, well developed, well nourished, sg Behavior is calm, cooperative, appropriate for age. Pain: Complains of pain in diaphragm and left lateral posterior chest Quality of pain is described as aching. Neuro: Level of Consciousness is awake, alert, obeys commands, Oriented to person, place, time, Speech is normal, Facial symmetry appears normal. Cardiovascular: Capillary refill is brisk in bilateral fingers Patient's skin is warm and dry. Chest pain is described as vague, quality is stabbing. Respiratory: Airway is patent Respiratory effort is even, unlabored, Respiratory pattern is regular, symmetrical, Breath sounds are clear bilaterally. GI: Abdomen is round non-distended, Reports tolerance of fluids, tolerance of food. : No signs and/or symptoms were reported regarding the genitourinary system. EENT: No signs and/or symptoms were reported regarding the EENT system. Derm: Skin is pink, warm \T\ dry. Musculoskeletal: Circulation, motion, and sensation intact. Range of motion: intact in all extremities, Swelling absent. Vital Signs: 11:05 BP 145 / 85; Pulse 81; Resp 19; Temp 97.8(O); Pulse Ox 93% on R/A; Weight 77.11 kg (R); tw2 Height 5 ft. 6 in. (167.64 cm); Pain 8/10; 12:53 BP 128 / 62; Pulse 83; Resp 17; Temp 97.6(O); Pulse Ox 100% on R/A; mh5 11:05 Body Mass Index 27.44 (77.11 kg, 167.64 cm) tw2 ED Course: 10:50 Patient arrived in ED. mr 10:51 Michael Henry MD is Private Physician. mr 11:02 Triage completed. tw2 11:05 Arm band placed on. tw2 11:08 Blade Gonzáles MD is Attending Physician. ps1 11:22 Ajay Walls, RN is Primary Nurse. sg 11:31 Patient has correct armband on for positive identification. Bed in low position. Call mh5 light in reach. Side rails up X2. Warm blanket given. night monitor on. Pulse ox on. NIBP on. 13:12 Michael Henry MD is Referral Physician. ps1 13:17 X-ray completed. Portable x-ray completed in exam room. Patient tolerated procedure sw well. 13:21 CXR XRAY In Process Unspecified. EDMS Administered Medications: 11:40 Drug: DuoNeb (3:1) (2.5 mg - 0.5 mg) 3 ml Route: Nebulizer; sg Outcome: 13:13 Discharge ordered by . ps1 13:45 Patient left the ED. sg Signatures: Dispatcher [employer] EDMS Ajay Walls, RN RN Kelsea Egan mr Alexander, Suly Yoo, AMISH [place] Damon Mcginnis [place] [id number] Blade Gonzáles MD MD ps1
--- NOTE | 2018-12-02 13:15 | EDPHYS ---
Physician Documentation [facility] Name: Emilia Pinzon Age: 68 yrs Sex: Female : 1950 Arrival Date: 12/02/2018 Time: 10:50 Bed 4 Private MD: Michael Henry E ED Physician Blade Gonzáles HPI: 12/02 11:24 This 68 yrs old Female presents to ER via Ambulatory with complaints of ps1 Shortness Of Breath, Cough, Rib pain, Wheezing. 11:24 Patient states that she has COPD and had a coughing fit and states that she may have ps1 broke a rib from coughing. States that it hurts when she takes a deep breath. No falls. Reportedly has fractured ribs in the past from coughing. Pain rated as moderate. Mild tenderness to palpation. No obvious FX. . Historical: - Allergies: 11:07 Sulfa (Sulfonamide Antibiotics); tw2 - Home Meds: 11:07 amlodipine oral once daily [Active]; atenolol 100 mg Oral tab 1 tab once daily tw2 [Active]; Celexa 40 mg Oral tab 1 tab once daily [Active]; estradiol 2 mg Oral tab 1 tab once daily [Active]; Xanax 1 mg Oral tab 1 tab 3 times per day [Active]; - PMHx: 11:07 Anxiety; Hypertension; tw2 - PSHx: 11:07 Hysterectomy; Cholecystectomy; shoulder SX; tw2 - Immunization history:: Adult Immunizations. - Social history:: Smoking status: Patient/guardian denies using tobacco. - Ebola Screening: : Patient denies travel to an Ebola-affected area in the 21 days before illness onset. ROS: 11:24 Constitutional: Negative for fever, chills, and weight loss, Eyes: Negative for injury, ps1 pain, redness, and discharge, ENT: Negative for injury, pain, and discharge, Cardiovascular: Negative for chest pain, palpitations, and edema, Abdomen/GI: Negative for abdominal pain, nausea, vomiting, diarrhea, and constipation, Back: Negative for injury and pain, MS/Extremity: Negative for injury and deformity, Skin: Negative for injury, rash, and discoloration. 11:24 Respiratory: Positive for shortness of breath, wheezing. Exam: 11:24 Constitutional: This is a well developed, well nourished patient who is awake, alert, ps1 and in no acute distress. Head/Face: Normocephalic, atraumatic. Eyes: Pupils equal round and reactive to light, extra-ocular motions intact. Lids and lashes normal. Conjunctiva and sclera are non-icteric and not injected. Chest/axilla: Normal chest wall appearance and motion. Nontender with no deformity. No lesions are appreciated. Cardiovascular: Regular rate and rhythm. No gallops, murmurs, or rubs. Normal PMI, no JVD. No pulse deficits. Respiratory: Lungs have equal breath sounds bilaterally, clear to auscultation and percussion. No rales, rhonchi or wheezes noted. No increased work of breathing, no retractions or nasal flaring. Abdomen/GI: Soft, non-tender, with normal bowel sounds. No distension or tympany. No guarding or rebound. No evidence of tenderness throughout. Skin: Warm, dry with normal turgor. Normal color with no rashes, no lesions, and no evidence of cellulitis. MS/ Extremity: Pulses equal, no cyanosis. Neurovascular intact. Full, normal range of motion. Neuro: Awake and alert, GCS 15, oriented to person, place, time, and situation. Cranial nerves II-XII grossly intact. Sensory grossly intact. Vital Signs: 11:05 BP 145 / 85; Pulse 81; Resp 19; Temp 97.8(O); Pulse Ox 93% on R/A; Weight 77.11 kg (R); tw2 Height 5 ft. 6 in. (167.64 cm); Pain 8/10; 12:53 BP 128 / 62; Pulse 83; Resp 17; Temp 97.6(O); Pulse Ox 100% on R/A; mh5 11:05 Body Mass Index 27.44 (77.11 kg, 167.64 cm) tw2 MDM: 11:27 Patient medically screened. ps1 12/02 11:24 Order name: CXR XRAY ps1 Administered Medications: 11:40 Drug: DuoNeb (3:1) (2.5 mg - 0.5 mg) 3 ml Route: Nebulizer; sg Disposition: 12/02/18 13:13 Discharged to Home. Impression: Intercostal pain, Chronic obstructive pulmonary disease, unspecified. - Condition is Stable. - Discharge Instructions: Chest Wall Pain, Chronic Obstructive Pulmonary Disease, Incentive Spirometer. - Prescriptions for Tramadol 50 mg Oral Tablet - take 1 tablet by ORAL route every 8 hours as needed; 12 tablet. - Medication Reconciliation Form, Thank You Letter, Antibiotic Education, Prescription Opioid Use form. - Follow up: Michael Henry MD; When: As needed; Reason: Recheck today's complaints, Continuance of care, Re-evaluation by your physician. Follow up: Emergency Department; When: As needed; Reason: Fever > 102 F, Trouble breathing. Signatures: Dispatcher [employer] EDMS Ajay Walls RN RN sg Suly Ponce RN RN tw2 Blade Gonzáles MD MD ps1 Corrections: (The following items were deleted from the chart) 13:45 13:13 12/02/2018 13:13 Discharged to Home. Impression: Intercostal pain; Chronic sg obstructive pulmonary disease, unspecified. Condition is Stable. Forms are Medication Reconciliation Form, Thank You Letter, Antibiotic Education, Prescription Opioid Use. Follow up: Michael Henry; When: As needed; Reason: Recheck today's complaints, Continuance of care, Re-evaluation by your physician. Follow up: Emergency Department; When: As needed; Reason: Fever > 102 F, Trouble breathing. ps1
--- NOTE | 2018-12-02 13:59 | RAD REPORT ---
EXAM DESCRIPTION: Shannon Single View12/02/2018 1:19 pm CLINICAL HISTORY: Chest pain COMPARISON: none FINDINGS: Old rib fractures Opacity within the medial right lung base likely represents eventration of the hemidiaphragm. The lungs appear clear of acute infiltrate. The heart is normal size IMPRESSION: No acute abnormalities displayed
== END 2018-12-02 13:45 | disposition home or self-care (01) ==
LOC: ER 10:47
DX: J44.9 Chronic obstructive pulmonary disease, unspecified (principal); I10 Essential (primary) hypertension; F41.9 Anxiety disorder, unspecified; Z88.2 Allergy status to sulfonamides
CPT/HCPCS: 71045; 94640; 99284